=== PATIENT | female | born 1985 | race Asian ===

== ENCOUNTER 2017-10-02 11:02 | Emergency (ER) | payer MEDICAID ==
[~2017-10-02] VITALS: Ht 157.5 cm; Wt 54.5 kg
[2017-10-02 11:07] VITALS: BP 137/75
--- NOTE | 2017-10-02 11:25 | NUR ---
PT TRIAGED, PT AMBULATED TO ER BED 10. ERMD NOTIFIED OF PATIENT STATUS.
--- NOTE | 2017-10-02 11:30 | NUR ---
Patient to bed 10.
--- NOTE | 2017-10-02 12:20 | NUR ---
DR. ESQUIVEL AT BEDSIDE 32/F PRESENT TO ER C/O ABDOMINAL PAIN x 2 DAYS. PT HS N/V/D. HX: NONE MEDS: NONE, PT SLEEPING AT THIS TIME, IN BED
[2017-10-02] MEDS ORDERED: ONDANSETRON 4 MG ODT PO ONE (12:25)
--- NOTE | 2017-10-02 12:50 | NUR ---
ONGOING WITH DRINKING APPLE JUICE
[2017-10-02 13:47] VITALS: BP 106/48
--- NOTE | 2017-10-02 13:48 | NUR ---
Patient discharged with v/s stable. Written and verbal after care instructions given and explained. Patient alert, oriented and verbalized understanding of instructions. Ambulatory with steady gait. All questions addressed prior to discharge. ID band removed. Patient advised to follow up with PMD. Rx of zofran given. Patient educated on indication of medication including possible reaction and side effects. Opportunity to ask questions provided and answered. encouraged fluid intake and pt agreed with it.
== END 2017-10-02 13:48 | disposition home or self-care (01) ==
LOC: MED 11:02
DX: K52.9 Noninfective gastroenteritis and colitis, unspecified (principal); R03.0 Elevated blood-pressure reading, without diagnosis of hypertension
CPT/HCPCS: 99283; S0119